=== PATIENT | female | born 1990 | race Caucasian/White ===

== ENCOUNTER 2018-03-14 17:52 | Emergency (ER) | payer OTHER ==
[2018-03-14 18:03] VITALS: BMI 42.5
[2018-03-14 18:38] VITALS: BP 123/60; PULSE 106; TEMP 98.3
[2018-03-14] MEDS ORDERED: DEXTROSE 5%-LACTATED RINGERS 250 ML IV ONE (19:15)
[2018-03-14] MEDS ORDERED: DEXTROSE 5%-LACTATED RINGERS 1,000 ML IV SCH (20:15)
[2018-03-14] MEDS ORDERED: ACETAMINOPHEN 325 MG TABLET (FP) PO ONE (20:40)
[2018-03-14] MEDS ORDERED: ACETAMINOPHEN 325 MG TABLET (FP) ONE (20:40)
== END 2018-03-14 23:00 | disposition home or self-care (01) ==
LOC: JER 17:52
DX: O26.893 Other specified pregnancy related conditions, third trimester (principal); Z04.1 Encounter for examination and observation following transport accident; Z3A.36 36 weeks gestation of pregnancy
CPT/HCPCS: 76801-TC; 76817-TC; 99281-25

== ENCOUNTER 2018-03-30 22:02 | Inpatient (IN) | payer BC ==
[2018-03-30] MEDS ORDERED: PROMETHAZINE HCL 25 MG/1 ML VIAL IVPUSH ONE (23:07)
[2018-03-30] MEDS ORDERED: BUTORPHANOL TARTRATE 1 MG/ML VIAL IVPB ONE (23:07)
[2018-03-30] MEDS ORDERED: ELECTROLYTE-148 SOLN 1,000 ML IV SCH (23:15)
--- NOTE | 2018-03-30 23:17 | HP ---
Past Medical History - Primary Care Physician PCP:: Kyung Chang - Admission Chief Complaint: Labor History of Present Illness: 28 yo EDC 04/05/18 EGA 39 week adimitted due to labor + bloody show + AFM History Source: Patient Limitations to Obtaining History: No Limitations - Past Medical History ...: 4 ...Para: 1 ...: 1 ...Spon : 2 ...EDC by Sono: 04/05/18 - Past Surgical History Past Surgical History: Yes: None Hx Myomectomy: No Hx Transabdominal Cerclage: No - Smoking History Smoking history: Never smoked Have you smoked in the past 12 months: No - Alcohol/Substance Use Hx Alcohol Use: No History of Substance Use: reports: None - Social History History of Recent Travel: No Home Medications - Allergies Allergies/Adverse Reactions: Allergies Allergy/AdvReac Type Severity Reaction Status Date / Time shrimp Allergy Verified 03/14/18 21:26 NSAIDS (Non-Steroidal AdvReac Verified 03/14/18 18:00 Anti-Inflamma - Home Medications Home Medications: Ambulatory Orders Vit Calc,Iron,Folic [ Vitamins] 1 each PO DAILY 03/14/18 Review of Systems - Review of Systems Constitutional: reports: No Symptoms Eyes: reports: No Symptoms HENT: reports: No Symptoms Neck: reports: No Symptoms Cardiovascular: reports: No Symptoms Respiratory: reports: No Symptoms Gastrointestinal: reports: No Symptoms Genitourinary: reports: No Symptoms Breasts: reports: No Symptoms Reported Musculoskeletal: reports: No Symptoms Integumentary: reports: No Symptoms Neurological: reports: No Symptoms Endocrine: reports: No Symptoms Hematology/Lymphatic: reports: No Symptoms Psychiatric: reports: No Symptoms Physical Exam - Maternity Constitutional: Yes: Well Nourished, No Distress Neck: Yes: WNL Lungs: Clear to auscultation Breast(s): Yes: WNL - Abdominal Exam/OB Fundal Height: 39 Number of Fetuses: Single Presentation: Vertex Contractions: Yes Category: I - Vaginal Exam/OB Dilatation (cm): 3 Amniotic Membrane Status: Intact Presentation: Vertex/Position - Physical Exam Integumentary: Yes: WNL Hemorrhage Risk Assessment - Risk Factors Risk Score: 0 Risk Level: Low Risk Problem List - Problems (1) 39 weeks gestation of Code(s): Z3A.39 - 39 WEEKS GESTATION OF (2) Labor established Code(s): OHE4158 - Assessment/Plan IUP at 39 wk labor Plan admit to LD
[2018-03-30 23:55] LABS: BASO % 0.1 % (0-2.0); EOS % 0.8 % (0-4.5); HEMATOCRIT 37.4 % (32.4-45.2); HEMOGLOBIN 12.2 GM/dL (10.7-15.3); LYMPH % 15.1 % (8-40); MCH 27.2 pg (25.7-33.7); MCHC 32.7 g/dl (32.0-36.0); MEAN CELL VOLUME 83.3 fl (80-96); MEAN PLT VOLUME 8.1 fl (7.5-11.1); MONO % 5.1 % (3.8-10.2); NEUT % 78.9 % (42.8-82.8); PLATELET COUNT 354 K/MM3 (134-434); RBC 4.49 M/mm3 (3.60-5.2); RDW 15.4 % (11.6-15.6); WHITE BLOOD COUNT 15.3 K/mm3 (4.0-10.0)
[2018-03-31 00:09] LABS: PROTHROMBIN TIME (PATIENT) 11.3 SEC (9.7-13.0)
[2018-03-31 00:12] LABS: ACTIVATED PTT 28.6 SECONDS (26.9-34.4)
[2018-03-31 00:16] LABS: ANION GAP 9 (8-16); BLOOD UREA NITROGEN 12 mg/dL (7-18); CALCIUM 8.4 mg/dL (8.5-10.1); CHLORIDE 107 mmol/L (98-107); CO2 23 mmol/L (21-32); CREATININE 0.5 mg/dL (0.55-1.02); GLUCOSE,RANDOM 82 mg/dL (74-106); POTASSIUM 4.2 mmol/L (3.5-5.1); SODIUM 139 mmol/L (136-145)
[2018-03-31 00:18] VITALS: BMI 44.2
--- NOTE | 2018-03-31 01:53 | PN ---
Ante-Partal Exam - Subjective Subjective: Pt desires epidural Vital Signs: Vital Signs Temperature 98.7 F 03/31/18 00:00 Pulse Rate 75 03/31/18 00:00 Respiratory Rate 20 03/31/18 00:00 Blood Pressure 120/69 03/31/18 00:00 O2 Sat by Pulse Oximetry (%) - Contractions Contractions: Yes Regularity: Regular Intensity: Mild Monitor Mode: External - Exam during Labor Category: I Monitor Decelerations: None Exam: Vaginal Dilatation (cm): 4 Effacement (%): 80 Amniotic Membrane Status: Intact Presentation: Vertex Station: -1 - Intrapartum Hemorrhage Risk Risk Score: 0 Risk Level: Low Risk - Assessment/Plan Assessment/Plan: Active Labor at 39 week Cat 1 Plan epidural
[2018-03-31] MEDS ORDERED: LIDOCAINE HCL 1% PRESERVATIVE FREE - 30ML VIAL ONE (01:58)
[2018-03-31] MEDS ORDERED: OXYTOCIN 20 UNITS in 0.9% NS 20 UNIT/1,000 ML INFUS.BAG IV ONE ×2 (01:58→04:26)
--- NOTE | 2018-03-31 02:05 | PN ---
Ante-Partal Exam - Subjective Subjective: Called to evaluate due to prolonged decel x 7-8 min Pt did not have epidural yet Vital Signs: Vital Signs Temperature 98.7 F 03/31/18 00:00 Pulse Rate 75 03/31/18 00:00 Respiratory Rate 20 03/31/18 00:00 Blood Pressure 120/69 03/31/18 00:00 O2 Sat by Pulse Oximetry (%) Bleeding: No Headache: No Visual changes: No Right upper quadrant pain: No - Contractions Contractions: Yes Regularity: Regular Monitor Mode: External - Exam during Labor Variability: Moderate Category: I Exam: Vaginal Dilatation (cm): 6-7 Effacement (%): 80 Presentation: Vertex Station: 0 - Intrapartum Hemorrhage Risk Risk Score: 0 Risk Level: Low Risk - Assessment/Plan Assessment/Plan: prolonged dec with recovery to 115 FHR Active labor at 39 week moderate variability Cat 2 Plan anticipate vaginal delivery
[2018-03-31] MEDS ORDERED: PROMETHAZINE HCL 25 MG/1 ML VIAL ONE (02:16)
[2018-03-31] MEDS ORDERED: BUTORPHANOL TARTRATE 1 MG/ML VIAL ONE (02:16)
[2018-03-31] MEDS ORDERED: METHYLERGONOVINE MALEATE 0.2 MG/1 ML AMP IM PRN (03:30)
[2018-03-31] MEDS ORDERED: BENZOCAINE 20% 57 GM BOTTLE TP PRN (03:30)
[2018-03-31] MEDS ORDERED: OXYTOCIN 20 UNITS in 0.9% NS 20 UNIT/1,000 ML INFUS.BAG IV SCH (03:30)
[2018-03-31] MEDS ORDERED: WITCH HAZEL 50% (TUCKS) 40 PAD/JAR PAD TP PRN (03:30)
[2018-03-31] MEDS ORDERED: BISACODYL 10 MG SUPP.RECT RC PRN (03:30)
[2018-03-31] MEDS ORDERED: BENZOCAINE 28 GM HEMORRHOIDAL OINTMENT TP PRN (03:30)
--- NOTE | 2018-03-31 03:30 | PN ---
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
[2018-03-31 03:43] LABS: ARTERIAL BLD GAS O2 SATURATION 76.9 % (90-98.9); ARTERIAL BLOOD GAS BASE EXCESS -1.6 meq/l (-2-2); ARTERIAL BLOOD GAS PCO2 38.2 mmHg (35-45); ARTERIAL BLOOD GAS pH 7.39 (7.35-7.45)
[2018-03-31 03:45] LABS: VENOUS PC02 38.3 mmHg (38-52); VENOUS PH 7.39 (7.32-7.42); VENOUS PO2 33.3 mmHg (28-48)
[2018-03-31 03:46] LABS: ARTERIAL BLOOD GAS PO2 35.8 mmHg (80-100)
[2018-03-31] MEDS: ACETAMINOPHEN 325 MG TABLET (FP) PO PRN ×3 (05:47→20:53)
--- NOTE | 2018-03-31 07:21 | PN ---
Post Note - Post Date of Delivery: 03/31/18 Post Day: 0 Vital Signs: Vital Signs - 24 hr 03/30/18 03/31/18 03/31/18 23:59 00:00 02:00 Temperature 98.3 F 98.7 F 96.1 F L Pulse Rate 96 H 75 78 Respiratory 19 20 20 Rate Blood Pressure 122/72 120/69 122/78 O2 Sat by Pulse Oximetry (%) 03/31/18 03/31/18 03/31/18 03:50 04:05 04:20 Temperature Pulse Rate 68 70 74 Respiratory 17 18 18 Rate Blood Pressure 112/55 109/57 107/55 O2 Sat by Pulse 97 97 97 Oximetry (%) 03/31/18 03/31/18 04:35 06:49 Temperature 98.8 F 98.0 F Pulse Rate 72 77 Respiratory 17 20 Rate Blood Pressure 111/57 113/77 O2 Sat by Pulse 97 Oximetry (%) Labs: Laboratory Results - last 24 hr 03/30/18 03/30/18 03/30/18 23:20 23:20 23:20 WBC 15.3 H RBC 4.49 Hgb 12.2 Hct 37.4 MCV 83.3 MCH 27.2 MCHC 32.7 RDW 15.4 Plt Count 354 D MPV 8.1 Absolute Neuts (auto) 12.1 Neutrophils % 78.9 Lymphocytes % 15.1 Monocytes % 5.1 Eosinophils % 0.8 D Basophils % 0.1 Nucleated RBC % 0 PT with INR 11.30 INR 1.00 PTT (Actin FS) 28.6 Puncture Site ABG pH ABG pCO2 at Pt Temp ABG pO2 at Pt Temp ABG HCO3 ABG O2 Sat (Measured) ABG O2 Content ABG Base Excess Mike Test VBG pH POC VBG pCO2 POC VBG pO2 Mixed VBG HCO3 Oxygen Flow Rate Sodium 139 Potassium 4.2 Chloride 107 Carbon Dioxide 23 Anion Gap 9 BUN 12 Creatinine 0.5 L Random Glucose 82 Calcium 8.4 L HIV 1&2 Antibody Screen HIV P24 Antigen Blood Type Antibody Screen 03/30/18 03/30/18 03/31/18 23:20 23:20 03:31 WBC RBC Hgb Hct MCV MCH MCHC RDW Plt Count MPV Absolute Neuts (auto) Neutrophils % Lymphocytes % Monocytes % Eosinophils % Basophils % Nucleated RBC % PT with INR INR PTT (Actin FS) Puncture Site No Result Required. ABG pH 7.39 ABG pCO2 at Pt Temp 38.2 ABG pO2 at Pt Temp 35.8 L* ABG HCO3 22.5 ABG O2 Sat (Measured) 76.9 L ABG O2 Content 18.2 ABG Base Excess -1.6 Mike Test No Result Required. VBG pH POC VBG pCO2 POC VBG pO2 Mixed VBG HCO3 Oxygen Flow Rate No Result Required. Sodium Potassium Chloride Carbon Dioxide Anion Gap BUN Creatinine Random Glucose Calcium HIV 1&2 Antibody Screen Negative HIV P24 Antigen Negative Blood Type O POSITIVE Antibody Screen Negative 03/31/18 03:31 WBC RBC Hgb Hct MCV MCH MCHC RDW Plt Count MPV Absolute Neuts (auto) Neutrophils % Lymphocytes % Monocytes % Eosinophils % Basophils % Nucleated RBC % PT with INR INR PTT (Actin FS) Puncture Site ABG pH ABG pCO2 at Pt Temp ABG pO2 at Pt Temp ABG HCO3 ABG O2 Sat (Measured) ABG O2 Content ABG Base Excess Mike Test VBG pH 7.39 POC VBG pCO2 38.3 POC VBG pO2 33.3 Mixed VBG HCO3 22.6 Oxygen Flow Rate Sodium Potassium Chloride Carbon Dioxide Anion Gap BUN Creatinine Random Glucose Calcium HIV 1&2 Antibody Screen HIV P24 Antigen Blood Type Antibody Screen - Subjective Subjective: No Complaints - Objective Breast: Not engorged Abdomen: Soft, Non-tender Uterus: Fundus firm Vagina: Scant lochia Extremities: Non-tender - Assessment/Plan (1) 39 weeks gestation of Assessment: S/P Normal Plan: Routine Care
[2018-03-31] MEDS ORDERED: TUBERCULIN PPD 5 TU/0.1ML SYRINGE (IN PATIENT USE ONLY) ID ONE (09:00)
[2018-04-01] MEDS: ACETAMINOPHEN 325 MG TABLET (FP) PO PRN ×3 (02:15→19:10)
--- NOTE | 2018-04-01 06:52 | PN ---
Post Progress Note Type of Delivery: Vital Signs: Vital Signs Temperature 97.9 F 04/01/18 02:00 Pulse Rate 56 L 04/01/18 02:00 Respiratory Rate 18 04/01/18 02:00 Blood Pressure 109/54 04/01/18 02:00 O2 Sat by Pulse Oximetry (%) 97 03/31/18 04:35 Uterus: Yes: Fundus Firm Abdomen/GI: Yes: Abdomen soft, Passing flatus, Tolerating PO. No: Tender Lochia: Yes: Rubra Lochia, amount: Small Extremities: Yes: Calves non-tender, Edema (+1 nonpitting LE edema b/l, stable from pre delivery) Perineum: Yes: Intact Activity: Ambulating - Labs Labs: CBC WBC 15.3 K/mm3 (4.0-10.0) H 03/30/18 23:20 RBC 4.49 M/mm3 (3.60-5.2) 03/30/18 23:20 Hgb 12.2 GM/dL (10.7-15.3) 03/30/18 23:20 Hct 37.4 % (32.4-45.2) 03/30/18 23:20 MCV 83.3 fl (80-96) 03/30/18 23:20 MCH 27.2 pg (25.7-33.7) 03/30/18 23:20 MCHC 32.7 g/dl (32.0-36.0) 03/30/18 23:20 RDW 15.4 % (11.6-15.6) 03/30/18 23:20 Plt Count 354 K/MM3 (134-434) D 03/30/18 23:20 MPV 8.1 fl (7.5-11.1) 03/30/18 23:20 Absolute Neuts (auto) 12.1 # 03/30/18 23:20 Neutrophils % 78.9 % (42.8-82.8) 03/30/18 23:20 Lymphocytes % 15.1 % (8-40) 03/30/18 23:20 Monocytes % 5.1 % (3.8-10.2) 03/30/18 23:20 Eosinophils % 0.8 % (0-4.5) D 03/30/18 23:20 Basophils % 0.1 % (0-2.0) 03/30/18 23:20 Nucleated RBC % 0 % (0-0) 03/30/18 23:20 Problem List - Problems (1) Status post vaginal delivery Code(s): MBZ9536 - (2) Obesity affecting Code(s): O99.210 - OBESITY COMPLICATING , UNSPECIFIED TRIMESTER (3) Obesity compl pregn//puerperp Code(s): NLE6081 - Assessment/Plan 28 y/o PPD#1 s/p normal and doing well - AFVSS - CBC pending - regular diet, encourage ambulation - routine care
[2018-04-01 08:51] LABS: BASO % 0.2 % (0-2.0); EOS % 1.8 % (0-4.5); HEMATOCRIT 36.6 % (32.4-45.2); LYMPH % 28.4 % (8-40); MCH 27.5 pg (25.7-33.7); MCHC 32.8 g/dl (32.0-36.0); MEAN PLT VOLUME 7.7 fl (7.5-11.1); MONO % 7.3 % (3.8-10.2); NEUT % 62.3 % (42.8-82.8); PLATELET COUNT 292 K/MM3 (134-434); RBC 4.35 M/mm3 (3.60-5.2); RDW 15.6 % (11.6-15.6); WHITE BLOOD COUNT 13.2 K/mm3 (4.0-10.0)
[2018-04-01] MEDS ORDERED: DIPHTH,PERTUSS(ACELL),TET 0.5 ML DISP.SYRIN IM ONE (10:00)
[2018-04-01] MEDS ORDERED: SENNOSIDES/DOCUSATE COMBO (SENNA PLUS) TABLET (UD) PO PRN (22:00)
[2018-04-02] MEDS: ACETAMINOPHEN 325 MG TABLET (FP) PO PRN ×2 (04:44→09:22)
[2018-04-02 08:01] VITALS: BP 118/63; PULSE 80; TEMP 98.2
--- NOTE | 2018-04-02 09:52 | DS ---
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 Vital Signs: Vital Signs Temperature 98.2 F 04/02/18 07:59 Pulse Rate 80 04/02/18 07:59 Respiratory Rate 18 04/02/18 07:59 Blood Pressure 118/63 04/02/18 07:59 O2 Sat by Pulse Oximetry (%) 97 03/31/18 04:35 Constitutional: Yes: Well Nourished, No Distress Cardiovascular: Yes: WNL, Regular Rate and Rhythm Respiratory: Yes: WNL, Regular Gastrointestinal: Yes: WNL, Normal Bowel Sounds, Soft ....Post : Yes: Uterus firm, Uterus non-tender Neurological: Yes: WNL, Alert, Oriented Labs: CBC, BMP 04/01/18 08:20 03/30/18 23:20 Delivery - Delivery Vaginal Delivery: No Problems Type of Anesthesia: None Episiotomy/Laceration: None EBL (cc): 350 (Nuchal x1 shoulders delivered without comp with Mccroberts) Delivery, Single - Stages of Labor Date 1st Stage Initiatied: 03/30/18 Time 1st Stage Initiated: 19:30 Date 2nd Stage Initiated: 03/31/18 Time 2nd Stage Initiated: 03:10 Date of Delivery: 03/31/18 Time of Delivery: 03:24 Time Placenta Delivered: 03:26 Placenta: Yes: Spontaneous - Condition of Crm Architect/Oyster Bed Worker Present: No Infant Gender: Female Weight: 7 lb 8 oz Position: OA Total Hours ROM (Hrs/Mins): 3Hrs/54Mins - 1 Minute Total Score: 9 5 Minutes Total Score: 9 - Feeding Plan Initial Plan: Exclusive throughout hospitalization Discharge Summary Reason For Visit: LABOR Current Active Problems 39 weeks gestation of (Acute) Labor established (Acute) Obesity affecting (Acute) Obesity compl pregn//puerperp (Acute) Procedures: Principal: Normal vaginal delivery Hospital Course: unremarkable Condition: Good - Instructions Diet, Activity, Other Instructions: Physical activity Resume your normal everyday activity as tolerated but no heavy lifting or strenuous exercise until seen by your doctor. You may walk unlimited amounts and climb stairs. You may resume driving the car when you feel safe and comfortable behind the wheel. No sexual activity as instructed for 6 weeks. Diet There are no dietary restrictions. Eat healthy, high-fiber foods. Drink 6 to 8 glasses of liquid each day. This will assist in keeping your bowels regular. Pain management You may take Tylenol as needed for pain. Call MD for any of the following: Severe pain not relieved by medication Fever of 101 or higher Excessive bleeding or drainage on dressing Inability to urinate Referrals: Kyung Chang MD [Staff Physician] - Disposition: HOME - Home Medications Comprehensive Discharge Medication List: Ambulatory Orders Vit/Iron Fum/Folic AC [ Tablet] 1 each PO DAILY 03/30/18
== END 2018-04-02 12:35 | disposition home or self-care (01) | DRG 775 ==
LOC: JDEL 22:02 → JLDR 22:30 → J3W 03-31 05:26
PROVIDERS: ADMIT Obstetrics & Gynecology; ATTEND Obstetrics & Gynecology
PROC: 10E0XZZ Delivery of Products of Conception, External Approach (ICD-10-PCS; principal; 2018-03-31)
DX: O99.214 Obesity complicating childbirth (principal); Z68.41 Body mass index [BMI] 40.0-44.9, adult; Z37.0 Single live birth; E66.9 Obesity, unspecified; Z3A.39 39 weeks gestation of pregnancy
CPT/HCPCS: 36415; 36600; 59409; 80048; 82803; 85025; 85610; 85730; 86593; 86850; 86900; 86901; 87389; 90715